=== PATIENT | male | born 1965 | race Caucasian/White ===

== ENCOUNTER 2016-08-12 00:53 | Inpatient (IN) | payer BC, OTHER ==
[2016-08-12] VITALS (8 sets, daily range): BP systolic 105–157; BP diastolic 68–104
[~2016-08-12] VITALS: Ht 180.3 cm; Wt 69.4 kg
[2016-08-12] MEDS ORDERED: IV NS 1000 ML 1,000 ML IV PRN (01:00)
[2016-08-12] MEDS ORDERED: MAG HYDROX/AL HYDROX/SIMETH 30 ML LIQUID UDC PO PRN (01:00)
[2016-08-12] MEDS ORDERED: LORAZEPAM 1 MG TABLET PO PRN ×2 (01:00)
[2016-08-12] MEDS ORDERED: DICYCLOMINE HCL 20 MG TABLET PO PRN (01:00)
[2016-08-12] MEDS ORDERED: LOPERAMIDE HCL 2 MG CAPSULE PO PRN ×2 (01:00)
[2016-08-12] MEDS ORDERED: THIAMINE HCL 200 MG/2 ML VIAL IM ONE (01:00)
[2016-08-12] MEDS ORDERED: IBUPROFEN 400 MG TABLET PO PRN (01:00)
[2016-08-12] MEDS ORDERED: MIRALAX 17 GM POWD.PACK PO PRN (01:00)
[2016-08-12] MEDS ORDERED: PROMETHAZINE HCL 25 MG/1 ML VIAL IM PRN (01:00)
[2016-08-12] MEDS ORDERED: LORAZEPAM 2 MG/1 ML VIAL IM PRN (01:00)
[2016-08-12] MEDS ORDERED: MAGNESIUM HYDROXIDE 30 ML LIQUID UDC PO PRN (01:00)
[2016-08-12 01:29] LABS: *AMPHETAMINE, URINE NEGATIVE (NEGATIVE); *BARBITURATE, URINE NEGATIVE (NEGATIVE); *CANNABINOID, URINE NEGATIVE (NEGATIVE); *COCCAINE, URINE NEGATIVE (NEGATIVE); *OPIATE, URINE NEGATIVE (NEGATIVE); *PHENCYCLIDINE SCREEN,URINE NEGATIVE (NEGATIVE)
[2016-08-12] MEDS: ONDANSETRON 4 MG/2 ML VIAL IV PRN ×2 (01:39→08:24)
--- NOTE | 2016-08-12 01:41 | NUR ---
RN note PRN Zofran Pt with 2 episodes of vomiting and c/o nausea. Administered Zofran 4 mg IV. No SOB noted. Will monitor and reassess.
[2016-08-12] MEDS ORDERED: ONDANSETRON 4 MG/2 ML VIAL ONE (01:43)
[2016-08-12] MEDS ORDERED: LORAZEPAM 1 MG TABLET ONE (01:43)
[2016-08-12 01:47] LABS: BASOPHILS % (AUTO) 0.3 % (0.0-2.0); EOSINOPHILS % (AUTO) 0.5 % (0.0-7.0); HEMOGLOBIN 16.6 g/dL (14.0-18.0); LYMPHOCYTES # (AUTO) 3.3 K/uL (0.8-4.8); LYMPHOCYTES % (AUTO) 34.5 % (20.5-51.5); MEAN CORPUSCULAR HEMOGLOBIN 31.4 uug (27.0-31.0); MEAN CORPUSCULAR HGB CONC 35 g/dL (32.0-37.0); MONOCYTES # (AUTO) 0.7 K/uL (0.1-1.30); NEUTROPHILS # (AUTO) 5.5 K/uL (1.8-8.9); NEUTROPHILS % (AUTO) 57.7 % (38.5-71.5); PLATELET COUNT (AUTO) 237 K/uL (150-450); RED BLOOD CELL COUNT(AUTO) 5.28 MIL/uL (4.70-6.10); WHITE BLOOD COUNT (AUTO) 9.5 K/uL (4.0-11.2)
[2016-08-12 01:49] LABS: ALANINE AMINOTRANSFERASE 34 U/L (16-63); ALBUMIN 4.2 g/dL (3.4-5.0); ALKALINE PHOSPHATASE 79 U/L (50-136); AMYLASE 29 U/L (25-115); ASPARTATE AMINOTRANSFERASE 43 U/L (15-37); BILIRUBIN,TOTAL 1.2 mg/dL (0.2-1.0); CALCIUM 9.4 mg/dL (8.5-10.1); CARBON DIOXIDE 25 mmol/L (21-32); CHLORIDE 99 mmol/L (98-107); GFR 53 mL/min (>60); GLUCOSE 161 mg/dL (74-106); LIPASE 189 U/L (73-393); MAGNESIUM 1.8 mg/dL (1.8-2.4); POTASSIUM 3.6 mmol/L (3.5-5.1); SODIUM SERUM 138 mmol/L (136-145); TOTAL PROTEIN, SERUM 8.3 g/dL (6.4-8.2); UREA NITROGEN, BLOOD 8 mg/dL (7-18)
[2016-08-12 01:54] LABS: ETHANOL < 3 MG/DL (0-0)
[2016-08-12 01:55] LABS: CREATININE 1.4 mg/dL (0.6-1.3)
[2016-08-12 01:58] LABS: THYROID STIMULATING HORMONE 3.741 mIU/mL (0.358-3.740)
[2016-08-12] MEDS ORDERED: LORAZEPAM 1 MG TABLET PO ONE (02:00)
[2016-08-12 02:19] LABS: HIV-1 p24 ANTIGEN NON REACTIVE (NONREACTIVE); HIV-1/2 ANTIBODY NON REACTIVE (NONREACTIVE)
--- NOTE | 2016-08-12 03:20 | NUR ---
ADMISSION Pt is a 51 yo male who arrived on the [facility] at 0120 on 08/12/16. Body check performed by [facility] and skin check performed by nurse. He is A&O x4 and ambulatory. He reports NKA, is full code status, and on a regular diet at home. Pt does not appear intoxicated and answers questions appropriately. He is having nausea and dry heaving upon admission. Vital signs are B/P 157/103, HR 107, O2 sat 99%, RR 18, T 98.8, 5/10 abdominal pain r/t nausea. Pt is 5'11" and weighs 153lb. He has a PMH of fatty liver, posterior right side cracked rib, rotator cuff surgery, self reported depression and anxiety. Lung sounds clear, PERRLA, brisk capillary refill, card player equal and strong, bowel sounds present. History of Use ETOH/Whiskey or Jerome 750mL per day for 8 months. Last drank 18 oz of beer on 08/11 at 0800. He has used ETOH for 30 years total. This is patient's first time in treatment. Symptoms when he does not use include "nausea, stomach pain, and tremors". Pt came to treatment because "I can't keep doing this". CIWA on admission was 12. His primary care physician is Dr. Covarrubias in [place], [place]. Dr. Puentes aware of pt's admission with orders received. Fall and seizure precautions in place. Bed is down with call light in reach. Addendum: 08/12/16 at 0622 by CHERRY DHALIWAL RN Pt reports that he was in the ER twice on 08/11/1701 for ETOH intoxication and withdrawal where he was administered anti-nausea medication and valium.
[2016-08-12] MEDS: diphenhydrAMINE 50 MG CAPSULE PO PRN (03:29)
--- NOTE | 2016-08-12 03:30 | NUR ---
PRN Benadryl administration Pt reports inability to sleep and that he has not slept in two days. PRN Benadryl administered.
[2016-08-12] MEDS ORDERED: diphenhydrAMINE 50 MG CAPSULE ONE (03:33)
--- NOTE | 2016-08-12 04:30 | NUR ---
PRN Benadryl reassessment PRN Benadryl effective. Pt is lying in bed resting with eyes closed. Respirations even and unlabored. Bed is down with call light in reach.
[2016-08-12] MEDS ORDERED: ONDA4TAB8 PO (04:36)
[2016-08-12] MEDS ORDERED: DICY10CA13 PO (04:36)
[2016-08-12] MEDS ORDERED: OMEP20CA10 PO (04:36)
--- NOTE | 2016-08-12 07:25 | NUR ---
END OF SHIFT Report provided to day shift nurse. Pt is lying in bed resting. He is a 51 yo male admitted to [facility] at 0120 today for ETOH withdrawal. He is A&O x4 and ambulatory. NKA, full code, regular diet. He has an IV to the right forearm with IV fluids running. One time Ativan, PRN Zofran, and PRN Benadryl administered. Last CIWA was 5. He drank 651mL and slept for 3 hours. Fall and seizure precautions in place. Bed is down with call light in reach.
[2016-08-12] MEDS: ONDANSETRON ODT 4 MG TAB.RAPDIS SL PRN ×2 (07:37→22:00)
--- NOTE | 2016-08-12 07:56 | NUR ---
Start of shift: Received pt laying in bed a/ox4. Pt receiving IV fluids NS @ 125 ml/hr to RFA. No swelling or redness noted to IV site. Pt presents with flushed face. He is tremulous and reports nausea and anxiety. He states he slept restless and feels fatigued. CIWA 6. Ativan taper to start this AM. PRN Zofran ODT administered to manage nausea. Will monitor effectiveness. Will medicate as ordered. Bed locked and in lowest position with call calvert in reach. Will continue to manage S/S of W/D and provide safe and supportive environment.
[2016-08-12] MEDS: LORAZEPAM 1 MG TABLET PO SCH ×4 (08:24→22:00)
[2016-08-12] MEDS: THIAMINE HCL 100 MG TABLET PO SCH (08:24)
[2016-08-12] MEDS: FOLIC ACID 1 MG TABLET PO SCH (08:24)
[2016-08-12] MEDS: MULTIVITAMINS,THERAPEUTIC TABLET PO SCH (08:24)
[2016-08-12] MEDS ORDERED: PANTOPRAZOLE SODIUM 40 MG VIAL IV SCH (09:00)
[2016-08-12] MEDS: ACETAMINOPHEN 325 MG TABLET PO PRN (12:40)
--- NOTE | 2016-08-12 12:45 | NUR ---
PT REPORTS WALSH 09/29. PRN TYLENOL GIVEN. WILL MONITOR EFFECTIVENESS
[2016-08-12] MEDS: CLONIDINE HCL 0.1 MG TABLET PO PRN (12:47)
--- NOTE | 2016-08-12 12:49 | NUR ---
IV FLUIDS DC'D PER MD. ENCOURAGED PT TO INCREASE FLUIDS
--- NOTE | 2016-08-12 13:15 | NUR ---
PT STATES TYLENOL WAS EFFECTIVE. DENIES WALSH AT THIS TIME.
[2016-08-12] MEDS: GABAPENTIN 300 MG CAPSULE PO SCH (17:19)
--- NOTE | 2016-08-12 19:03 | NUR ---
END OF SHIFT: PT CONTINUES ON ATIVAN TAPER. IV FLUIDS D/C'D AT NOON. PT C/O NAUSEA THIS MORNING. PO ZOFRAN WAS NOT EFFECTIVE. IV ZOFRAN GIVEN AND WAS EFFECTIVE. PT'S FACE IS FLUSHED AND FINE TREMORS NOTED TO HANDS. PRN TYLENOL GIVEN FOR REPORTED WALSH AND WAS EFFECTIVE. LAST CIWA 8. ENCOURAGED PT REST IN BED AND TO INCREASE FLUIDS.PT INTERACTED WITH PEERS. SAFETY MEASURES IN PLACE. CALL MAGANA IN REACH AND BED IN LOWEST POSITION. WILL PASS REPORT TO ONCOMING NURSE.
--- NOTE | 2016-08-12 19:15 | NUR ---
START OF SHIFT NOTE: Patient is a 51 y/o male admitted on 08/12/16 for ETOH dependence. Patient reported drinking 750ml of whiskey or bourbon daily for 8 months. Patient with past medical history of fatty liver, right posterior side cracked rib, Anxiety, Depression, & Rotator cuff surgery in 2001. Seizure and fall precautions noted. Patient is on a regular diet with no known food and drug allergies. Full Code status. Patient started today on a 5-day Ativan taper and tolerating well. last CIWA is 8. Pt was given PRN PO & IV Zofran for nausea during day shift and were effective. Pt has a 22G IV on his right forearm. IV site patent, flushes easily with no s/s of infiltration or infection. Patient is alert & oriented x4. No shortness of breath noted. Respiration even & unlabored. Abdomen soft & non-distended. Bowel sounds active in all four quadrants. Slight nausea noted with no episode of vomiting. no hallucinations noted. Patient denies SI/HI. Safety precautions are in place. Bed locked in lowest position. Both side rails up. Call light within pt's reach. Will continue to monitor patient.
--- NOTE | 2016-08-12 22:00 | NUR ---
PRN Zofran Patient complains of slight nausea. No episode of vomiting noted. PRN Zofran PO given as ordered. Will continue to monitor patient.
--- NOTE | 2016-08-12 23:00 | NUR ---
PRN reassessment Patient verbalized relief from nausea. No episode of vomting noted. PRN Zofran effective. Will continue to monitor patient.
[2016-08-13] VITALS: BP 128/80
--- NOTE | 2016-08-13 04:00 | NUR ---
Vitals/Ciwa deferred Patient refused at this time. No shortness of breath noted. Respiration even & unlabored. Patient asleep in bed and appears comfortable. Will continue to monitor.
--- NOTE | 2016-08-13 07:09 | NUR ---
END OF SHIFT NOTE: Patient is a 51 y/o male admitted on 08/12/16 for ETOH dependence. Patient reported drinking 750ml of whiskey or bourbon daily for 8 months. Patient with past medical history of fatty liver, right posterior side cracked rib, Anxiety, Depression, & Rotator cuff surgery in 2001. Seizure and fall precautions noted. Patient is on a regular diet with no known food and drug allergies. Full Code status. Patient started today on a 5-day Ativan taper and tolerating well. Last CIWA is 3. Pt was given PRN Zofran for nausea and were effective. Pt remained compliant with therapeutic plan. Pt remained stable and vitals remains WNL. Pt slept for a total of 5 hours. Pt consumed 2683ml of fluids. Voided 4x with no bowel movement. All needs attended & met. Safety precautions are in place. Will endorse pt to day shift nurse.
[2016-08-13 08:00] VITALS: BP 120/93
--- NOTE | 2016-08-13 08:10 | NUR ---
START OF SHIFT: RECEIVED PT THIS AM SLEEPING IN BED. PT AWOKE AND STATED HE HAD A BETTER NIGHT LAST NIGHT BUT FEELS GROGGY AND MILDLY ANXIOUS. PT DENIES NAUSEA THIS AM AND STATES THE PO ZOFRAN GIVEN BY [facility] DOCTOR NURSE WAS EFFECTIVE. PT SLEPT 5 HOURS. CIWA 2 THIS AM. WILL CONTINUE ATIVAN TAPER TODAY AND WILL MANAGE PT S/S OF W/D. WILL ENCOURAGE GROUP ATTENDANCE TODAY.
[2016-08-13] MEDS ORDERED: TUBERCULIN,PURIF.PROT.DERIV. 5 TU/0.1 ML TEST ID ONE (09:00)
[2016-08-13] MEDS ORDERED: LORAZEPAM 1 MG TABLET PO SCH (09:00)
[2016-08-13] MEDS: GABAPENTIN 300 MG CAPSULE PO SCH ×2 (09:02→17:18)
[2016-08-13] MEDS: THIAMINE HCL 100 MG TABLET PO SCH (09:02)
[2016-08-13] MEDS: MULTIVITAMINS,THERAPEUTIC TABLET PO SCH (09:02)
[2016-08-13] MEDS: FOLIC ACID 1 MG TABLET PO SCH (09:02)
[2016-08-13 11:34] LABS: HEMATOCRIT 50.1 % (40.0-50.0); MEAN CORPUSCULAR HEMOGLOBIN 31.6 uug (27.0-31.0); MEAN CORPUSCULAR HGB CONC 34 g/dL (32.0-37.0); MEAN CORPUSCULAR VOLUME 93.4 fL (82.0-92.0); PLATELET COUNT (AUTO) 215 K/uL (150-450); RED BLOOD CELL COUNT(AUTO) 5.37 MIL/uL (4.70-6.10); RED CELL DISTRIBUTION WIDTH 13.1 % (11.5-14.5); WHITE BLOOD COUNT (AUTO) 7.9 K/uL (4.0-11.2)
[2016-08-13 11:51] LABS: BILIRUBIN,DIRECT 0.2 mg/dL (0.0-0.2); BILIRUBIN,TOTAL 0.8 mg/dL (0.2-1.0); CALCIUM 9.9 mg/dL (8.5-10.1); CREATININE 1.3 mg/dL (0.6-1.3); MAGNESIUM 2.3 mg/dL (1.8-2.4); POTASSIUM 5.1 mmol/L (3.5-5.1); TOTAL PROTEIN, SERUM 8.2 g/dL (6.4-8.2)
[2016-08-13 11:58] LABS: THYROID STIMULATING HORMONE 2.645 mIU/mL (0.358-3.740)
[2016-08-13 12:00] VITALS: BP 141/96
[2016-08-13 13:25] LABS: HCV AB 0.2 s/co ratio (0.0-0.9); HEPATITIS B CORE AB, IgM Negative (Negative); HEPATITIS B SURFACE AG Negative (Negative)
[2016-08-13] MEDS: LORAZEPAM 1 MG TABLET PO SCH ×2 (14:31→21:49)
[2016-08-13 16:00] VITALS: BP 138/94
[2016-08-13 16:18] LABS: LYMPHOCYTES % (AUTO) 24.2 % (20.5-51.5); MONOCYTES % (AUTO) 6.3 % (0.0-11.0)
[2016-08-13 16:19] LABS: BASOPHILS % (AUTO) 0.2 % (0.0-2.0); EOSINOPHILS # (AUTO) 0.1 K/uL (0.0-0.7); EOSINOPHILS % (AUTO) 1.3 % (0.0-7.0); MONOCYTES # (AUTO) 0.5 K/uL (0.1-1.30); NEUTROPHILS # (AUTO) 5.7 K/uL (1.8-8.9)
--- NOTE | 2016-08-13 18:47 | NUR ---
END OF SHIFT: PT IS ON ATIVAN TAPER. MODIFIED TAPER BECAUSE PT C/O FEELING GROGGY AND OUT OF IT. PT STATES HE FEELS BETTER WITH LOWER ATIVAN DOSE. LAST CIWA 4. PT IS ANXIOUS AND HAS MINOR TREMORS WITH FLUSHED FACE. PT TRIES TO MINIMIZE S/S OF W/D. NO PRN MEDS GIVEN ON THIS SHIFT PT STATES DETOX MEDS ARE EFFECTIVE. PT SOCIALIZING WITH PEERS AND ATTENDING GROUP. SAFETY MEASURES IN PLACE. WILL PASS SHIFT REPORT TO ONCOMING HOSPICE HOME CARE COORDINATOR NURSE.
--- NOTE | 2016-08-13 19:30 | NUR ---
START OF SHIFT NOTE: Patient is a 51 y/o male admitted on 08/12/16 for ETOH dependence. Patient reported drinking 750ml of whiskey or bourbon daily for 8 months. Patient with past medical history of fatty liver, right posterior side cracked rib, Anxiety, Depression, & Rotator cuff surgery in 2001. Seizure and fall precautions noted. Patient is on a regular diet with no known food and drug allergies. Full Code status. Patient is on a modified Ativan taper and tolerating well. last CIWA is 4. No PRN medications was given during day shift. Patient is alert & oriented x4. No shortness of breath noted. Respiration even & unlabored. Abdomen soft & non-distended. Bowel sounds active in all four quadrants. Patient denies nausea at this time. Patient appears flushed. Patient denies anxiety, sweating and chills. No hallucinations noted. Patient denies SI/HI. Safety precautions are in place. Bed locked in lowest position. Both side rails up. Call light within pt's reach. Will continue to monitor patient.
[2016-08-13 20:00] VITALS: BP 128/96
[2016-08-13] MEDS: diphenhydrAMINE 50 MG CAPSULE PO PRN (21:49)
--- NOTE | 2016-08-13 21:49 | NUR ---
PRN Benadryl Patient complains of insomnia. Pt requested medication that will help him sleep. Benadryl PRN administered as ordered. Will continue to monitor patient.
--- NOTE | 2016-08-14 | NUR ---
Vitals/Ciwa deferred Patient refused vitals at this time. No shortness of breath noted. Respiration even & unlabored. Patient asleep in bed and appears comfortable. Will continue to monitor.
--- NOTE | 2016-08-14 02:49 | NUR ---
Prn Reassessment Patient asleep in bed at this time and appears comfortable. PRN medication effecrtive. No shortness of breath noted. Will continue to monitor.
--- NOTE | 2016-08-14 07:14 | NUR ---
END OF SHIFT NOTE: Patient is a 51 y/o male admitted on 08/12/16 for ETOH dependence. Patient reported drinking 750ml of whiskey or bourbon daily for 8 months. Patient with past medical history of fatty liver, right posterior side cracked rib, Anxiety, Depression, & Rotator cuff surgery in 2001. Seizure and fall precautions noted. Patient is on a regular diet with no known food and drug allergies. Full Code status. Patient is on a 5-day Ativan taper and tolerating well. Last CIWA is 3. Pt was given PRN Benadryl for sleep and were effective. Pt remained compliant with therapeutic plan. Pt remained stable and vitals remains WNL. Pt slept for a total of 8 hours. Pt consumed 1153 ml of fluids. Voided 3x with no bowel movement. All needs attended & met. Safety precautions are in place. Will endorse pt to day shift nurse.
--- NOTE | 2016-08-14 07:15 | NUR ---
Start of Shift Notes: Received patient in his room. Awake, alert and oriented x 4. Verbally responsive. Able to make his needs known. Appears flushed and anxious. Respirations even and unlabored. No SOB noted. Skin warm and dry to touch. Abdomen soft and non-distended with (+) BS in all 4 quadrants. No complains of abdominal pain or discomfort noted. No complains of N/V/D or constipation noted. Bladder non-distended and voids independently. Ambulatory ad aislinn wit steady gait. Patient is a 51 year old male admitted for ETOh dependence who was placed on a 50day Ativan taper as ordered. No adverse reactions noted. Has past medical hx of fatty liver, right posterior cracked rib,k anxiety, depression, rotator cuff surgery. NKA. FULL CODE. Regular diet. On fall and seizure precautions. Educated patient on his current plan of care for the day and his medication regimen. Encouraged oral fluid intake and encouraged group participation to learn new skills to prevent relapse. Will continue to monitor closely.
[2016-08-14 08:00] VITALS: BP 132/87
[2016-08-14] MEDS: PANTOPRAZOLE SODIUM 40 MG TABLET.DR PO SCH (09:00)
[2016-08-14] MEDS ORDERED: LORAZEPAM 1 MG TABLET PO SCH (09:00)
[2016-08-14] MEDS: FOLIC ACID 1 MG TABLET PO SCH (09:19)
[2016-08-14] MEDS: GABAPENTIN 300 MG CAPSULE PO SCH ×2 (09:19→17:05)
[2016-08-14] MEDS: MULTIVITAMINS,THERAPEUTIC TABLET PO SCH (09:19)
[2016-08-14] MEDS: THIAMINE HCL 100 MG TABLET PO SCH (09:19)
[2016-08-14] MEDS: LORAZEPAM 1 MG TABLET PO SCH ×3 (09:20→20:12)
--- NOTE | 2016-08-14 09:59 | NUR ---
Protonix at 0900 not administered: Patient refused Protonix at 0900. Education provided still refused. Per patient, he will take it in AM. made aware.
[2016-08-14 12:00] VITALS: BP 154/92
[2016-08-14] MEDS: CLONIDINE HCL 0.1 MG TABLET PO PRN (14:19)
[2016-08-14 14:20] VITALS: BP 160/107
--- NOTE | 2016-08-14 14:20 | NUR ---
Clonidine 0.1mg PO given: Patient noted with anxiety. BP 160/107. Denies any complains of chest pain, headache, light headedness. Medicated patient with Clonidine 0.1mg PO as ordered. Will monitor for effectiveness.
[2016-08-14 15:20] VITALS: BP 145/87
--- NOTE | 2016-08-14 15:20 | NUR ---
Re-assessment: BP 145/87. Patient states less anxiety noted. PRN Clonidine was effective.
[2016-08-14 16:00] VITALS: BP 109/79
--- NOTE | 2016-08-14 19:03 | NUR ---
End of Shift Notes: Patient is a 51 year old male admitted for ETOh dependence who was placed on a 50day Ativan taper as ordered. No adverse reactions noted. Has past medical hx of fatty liver, right posterior cracked rib,, anxiety, depression, rotator cuff surgery. NKA. FULL CODE. Regular diet. On fall and seizure precautions. Prior to admission, patient was using 750cc of whiskey or bourbon daily for 8 months. Withdrawal symptoms were closely monitored. Patient presented with anxiety, agitation and fine tremors. Initial CIWA 3, Last CIWA 3. VS monitored closely q 4 hours. Protonix 40 mg PO at 0900 refused despite encouragement. Participated in group and therapy sessions. All needs met and attended. Will continue to monitor closely.
--- NOTE | 2016-08-14 19:25 | NUR ---
Start of Shift Patient Received. Patient is in his room, awake, alert and verbally responsive. Patient is noted in bed watching TV. Breathing even and non labored. No signs of pain or discomfort noted. Patient is a 51 year old male, admitted on 08/12/16 for ETOH Withdrawal, under the care or Dr. Puentes, currently receiving a 5 day Ativan taper. Patient verbalizes no known allergies, wishes to be full code, following a regular diet, placed on fall and seizure precautions, and skin noted intact. Past medical History noted as fatty liver, Right posterior side cracked rib, anxiety, depression, Rotator cuff surgery in 2001. Per endorsement, patient is noted to be compliant with medications and plan of care as ordered. PRN Clonidine given and noted to be effective. All needs attended to promptly. Will continue plan of care as ordered.
[2016-08-14 20:10] VITALS: BP 131/83
[2016-08-14] MEDS: diphenhydrAMINE 50 MG CAPSULE PO PRN (20:12)
--- NOTE | 2016-08-14 20:15 | NUR ---
PRN Medication Administration Patient verbalizing "My anxiety is really high. Im really irritated. I really miss home. Im really tired but cant fall asleep." PRN Benadryl given with routine medications. Patient able to tolerate well. Will continue to monitor.
--- NOTE | 2016-08-14 22:30 | NUR ---
PRN Medication Reassessment Patient is noted in bed sleeping. Breathing even and non labored. No signs of pain or discomfort noted. Patient was given PRN Benadryl and medication noted effective. Will continue to monitor.
--- NOTE | 2016-08-15 00:40 | NUR ---
Vitals and CIWA Patient refused 0000 prior to bed. Patient verbalized "Im just really want to sleep through the night." Patient is in bed sleeping. Breathing even and non labored. No signs of pain or discomfort noted. Patient respirations noted 14. CIWA not able to be completed as per order. Will continue to monitor. Addendum: 08/15/16 at 0040 by DARIAN HOLLOWAY LVN Amended: Links added.
--- NOTE | 2016-08-15 04:15 | NUR ---
Vitals and CIWA Patient refused 0400 prior to bed. Patient verbalized "Im just really want to sleep through the night." Patient is in bed sleeping. Breathing even and non labored. No signs of pain or discomfort noted. Patient respirations noted 14. CIWA not able to be completed as per order. Will continue to monitor. Addendum: 08/15/16 at 0504 by DARIAN HOLLOWAY LVN Amended: Links added.
[2016-08-15] MEDS: PANTOPRAZOLE SODIUM 40 MG TABLET.DR PO SCH (06:19)
--- NOTE | 2016-08-15 07:28 | NUR ---
End of Shift Patient Received. Patient is in his room, awake, alert and verbally responsive. Patient is noted in bed watching TV. Breathing even and non labored. No signs of pain or discomfort noted. Patient is a 51 year old male, admitted on 08/12/16 for ETOH Withdrawal, under the care or Dr. Puentes, currently receiving a 5 day Ativan taper. Patient verbalizes no known allergies, wishes to be full code, following a regular diet, placed on fall and seizure precautions, and skin noted intact. Past medical History noted as fatty liver, Right posterior side cracked rib, anxiety, depression, Rotator cuff surgery in 2001. Patient was given PRN Benadryl and medication noted to be effective. Patient is noted to be compliant with medications and plan of care as ordered. All needs attended to promptly. Will continue plan of care as ordered.
--- NOTE | 2016-08-15 07:51 | NUR ---
Start of Shift Notes: Received patient in his room. Awake, alert and oriented x 4. Verbally responsive. Able to make his needs known. Appears anxious. Fine tremors noted. Respirations even and unlabored. No SOB noted. Skin warm and dry to touch. Abdomen soft and non-distended with (+) BS in all 4 quadrants. No complains of abdominal pain or discomfort noted. No complains of N/V/D or constipation noted. Bladder non-distended and voids independently. Ambulatory ad aislinn wit steady gait. Patient is a 51 year old male admitted for ETOh dependence who was placed on a 50day Ativan taper as ordered. No adverse reactions noted. Has past medical hx of fatty liver, right posterior cracked rib,k anxiety, depression, rotator cuff surgery. NKA. FULL CODE. Regular diet. On fall and seizure precautions. Educated patient on his current plan of care for the day and his medication regimen. Encouraged oral fluid intake and encouraged group participation to learn new skills to prevent relapse. Will continue to monitor closely.
[2016-08-15 08:00] VITALS: BP 103/75
[2016-08-15] MEDS ORDERED: LORAZEPAM 1 MG TABLET PO SCH (09:00)
[2016-08-15] MEDS: THIAMINE HCL 100 MG TABLET PO SCH (09:09)
[2016-08-15] MEDS: GABAPENTIN 300 MG CAPSULE PO SCH ×2 (09:09→16:03)
[2016-08-15] MEDS: MULTIVITAMINS,THERAPEUTIC TABLET PO SCH (09:09)
[2016-08-15] MEDS: LORAZEPAM 1 MG TABLET PO SCH ×2 (09:09→21:15)
[2016-08-15] MEDS: FOLIC ACID 1 MG TABLET PO SCH (09:09)
[2016-08-15] MEDS: FLUTICASONE PROP NASAL SPRAY 16 GM BOTTLE NS SCH (09:09)
[2016-08-15] MEDS: LORATADINE 10 MG TABLET PO SCH (09:09)
[2016-08-15 12:00] VITALS: BP 103/75
[2016-08-15 16:00] VITALS: BP 130/97
[2016-08-15] MEDS: ACETAMINOPHEN 325 MG TABLET PO PRN (16:03)
--- NOTE | 2016-08-15 16:07 | NUR ---
Tylenol 650 mg PO given: Patient noted with complain of headache 09/29. Medicated patient with Tylenol 650 mg PO as ordered. Will monitor for effectiveness.
--- NOTE | 2016-08-15 17:07 | NUR ---
Re-assessment: Per patient, PRN Tylenol was effective in reducing his headache.
--- NOTE | 2016-08-15 18:40 | NUR ---
End of Shift Notes: Patient is a 51 year old male admitted for ETOh dependence who was placed on a 50day Ativan taper as ordered. No adverse reactions noted. Has past medical hx of fatty liver, right posterior cracked rib,, anxiety, depression, rotator cuff surgery. NKA. FULL CODE. Regular diet. On fall and seizure precautions. Prior to admission, patient was using 750cc of whiskey or bourbon daily for 8 months. Withdrawal symptoms were closely monitored. Patient presented with anxiety, fine tremors. Initial CIWA 4, Last CIWA 2. VS monitored closely q 4 hours. No significant abnormalities noted. Tylenol 650 mg PO as given at 1604 due to complains of headache with help after 1 hour. Compliant with care and treatment.. Participated in group and therapy sessions. All needs met and attended. Will continue to monitor closely.
--- NOTE | 2016-08-15 19:25 | NUR ---
Start of Shift Patient Received. Patient is in activities room participating in group activities. Patient is a 51 year old male, admitted on 08/12/16 for ETOH Withdrawal, under the care or Dr. Puentes, currently receiving a 5 day Ativan taper. Patient verbalizes no known allergies, wishes to be full code, following a regular diet, placed on fall and seizure precautions, and skin noted intact. Past medical History noted as fatty liver, Right posterior side cracked rib, anxiety, depression, Rotator cuff surgery in 2001. Per endorsement, patient is noted to be compliant with medications and plan of care as ordered. PRN Tylenol given and noted to be effective. All needs attended to promptly. Will continue plan of care as ordered.
[2016-08-15 20:10] VITALS: BP 140/96
[2016-08-15] MEDS: diphenhydrAMINE 50 MG CAPSULE PO PRN (21:15)
[2016-08-15] MEDS: CLONIDINE HCL 0.1 MG TABLET PO PRN (21:15)
--- NOTE | 2016-08-15 21:20 | NUR ---
PRN Medication Administration Patient noted with elevated blood pressure, pulse, verbalizing increased anxiety, Chills, restless, and inability of falling asleep. PRN Clonidine and Benadryl given with routine medication. Will continue to monitor for effectiveness.
--- NOTE | 2016-08-15 23:00 | NUR ---
PRN Medication Reassessment Patient is noted in his bed, awake, alert and verbally responsive. Breathing even and non labored. No signs of pain or discomfort noted. Patient able to verbalize "the medication really helped me to relax enough so I can try and go to sleep." PRN medications noted to be effective. Will continue to monitor.
--- NOTE | 2016-08-16 00:52 | NUR ---
Vitals and CIWA Patient refused 0000 prior to bed. Patient verbalized "Im just really want to sleep through the night." Patient is in bed sleeping. Breathing even and non labored. No signs of pain or discomfort noted. Patient respirations noted 14. CIWA not able to be completed as per order. Will continue to monitor. Addendum: 08/16/16 at 0052 by DARINA HOLLOWAY LVN Amended: Links added.
--- NOTE | 2016-08-16 04:39 | NUR ---
Vitals and CIWA Patient refused 0400 prior to bed. Patient verbalized "Im just really want to sleep through the night." Patient is in bed sleeping. Breathing even and non labored. No signs of pain or discomfort noted. Patient respirations noted 14. CIWA not able to be completed as per order. Will continue to monitor. Addendum: 08/16/16 at 0440 by DARIAN HOLLOWAY LVN Amended: Links added.
[2016-08-16] MEDS: PANTOPRAZOLE SODIUM 40 MG TABLET.DR PO SCH (06:12)
--- NOTE | 2016-08-16 07:24 | NUR ---
End of Shift Patient Received. Patient is in his room, awake, alert and verbally responsive. Patient is noted in bed watching TV. Breathing even and non labored. No signs of pain or discomfort noted. Patient is a 51 year old male, admitted on 08/12/16 for ETOH Withdrawal, under the care or Dr. Puentes, currently receiving a 5 day Ativan taper. Patient verbalizes no known allergies, wishes to be full code, following a regular diet, placed on fall and seizure precautions, and skin noted intact. Past medical History noted as fatty liver, Right posterior side cracked rib, anxiety, depression, Rotator cuff surgery in 2001. Patient was given PRN Benadryl and Clonidine 0.1mg with medications noted to be effective. Patient is noted to be compliant with medications and plan of care as ordered. All needs attended to promptly. Will continue plan of care as ordered.
--- NOTE | 2016-08-16 07:30 | NUR ---
Start of Shift Report from the night nurse: pt is 51y/o male her for Etoh r/t whisky and bourbon 750mg/d; 5 day Ativan taper ordered. Pt is a full code, regular diet, NKA, fall and seizure precautions ordered. HHx: fatty liver, right rib fx, anxiety , depression and rotator cuff surgery 2001. V/S stable. Skin is intact. No new labs, orders or recommendations endorsed to me. Last CIWA 7. Pt is in room asleep. Will cont. to monitor the pt.
[2016-08-16 08:00] VITALS: BP 126/88
[2016-08-16] MEDS: THIAMINE HCL 100 MG TABLET PO SCH (08:48)
[2016-08-16] MEDS: FOLIC ACID 1 MG TABLET PO SCH (08:48)
[2016-08-16] MEDS: MULTIVITAMINS,THERAPEUTIC TABLET PO SCH (08:48)
[2016-08-16] MEDS: HYDROXYZINE PAMOATE 25 MG CAPSULE PO PRN ×2 (08:48→20:51)
[2016-08-16] MEDS: CLONIDINE HCL 0.1 MG TABLET PO PRN (08:48)
[2016-08-16] MEDS: GABAPENTIN 300 MG CAPSULE PO SCH ×2 (08:48→16:57)
[2016-08-16] MEDS: FLUTICASONE PROP NASAL SPRAY 16 GM BOTTLE NS SCH (08:49)
[2016-08-16] MEDS: LORATADINE 10 MG TABLET PO SCH ×2 (08:49→10:24)
--- NOTE | 2016-08-16 08:55 | NUR ---
PRN Medication Administration Pt is in room agitated and irritable with c/o loss of sleep r/t the psychotic episode and yell with screaming of another pt and request something to help him sleep; PRN's Vistaril 25mg and Clonidine 0.1mg given PRN as ordered. Will reassess in 1H.
[2016-08-16] MEDS ORDERED: LORAZEPAM 1 MG TABLET PO SCH (09:00)
--- NOTE | 2016-08-16 10:00 | NUR ---
Reassessment Pt is awake, less anxious with walking in the [place] and states that he was unable to get sleep so he was going to attend group therapy; PRN Clonidine & Vistaril are effective for anxiety yet not for sleep. Will cont. to monitor the pt.
[2016-08-16 12:00] VITALS: BP 118/76
[2016-08-16 16:00] VITALS: BP 137/97
--- NOTE | 2016-08-16 16:58 | NUR ---
Medication Non-Administration Pt is very agitated and irritable since he was interrupted while he states that he just laid down to take a nap and was re-evaluated by Dr. Puentes and me for V/S; pt is uncooperative with care and times and refused the gabapentin 300mg. V/S stable. Will cont. to monitor the pt.
--- NOTE | 2016-08-16 19:37 | NUR ---
End of Shift Report to the night nurse: pt is 51y/o male her for Etoh r/t whisky and bourbon 750mg/d; 5 day Ativan taper ordered. Pt is a full code, regular diet, NKA, fall and seizure precautions ordered. HHx: fatty liver, right rib fx, anxiety , depression and rotator cuff surgery 2001. V/S stable. Skin is intact. No new labs, orders or recommendations endorsed to me. PRN Vistaril 25mg and Clonidine 0.1mg given since the pt was anxious and agitated with c/o loss of sleep last night yet was ineffective and the pt became very agitated, irritable, angry and impolite with staff and care care and refused gabapentin 300mg at 1600H with Last CIWA 10 r/t emotional episode. Pt did attend 1 group therapy during my shift. New orders to be d/c'd tomorrow & endorsed to night nurse to collect urine and that the pt refuses to get V/S done during his sleep and requested sleep aid ANA during the manager of business.
[2016-08-16 20:00] VITALS: BP 138/99
[2016-08-16] MEDS: diphenhydrAMINE 50 MG CAPSULE PO PRN (20:07)
--- NOTE | 2016-08-16 20:07 | NUR ---
PRN BENADRYL ADMINISTRATION PATIENT REQUESTS FOR SLEEP AID. PRN BENADRYL GIVEN. WILL MONITOR FOR EFFECTIVENESS
--- NOTE | 2016-08-16 20:51 | NUR ---
BENADRYL RE-ASSESSMENT/VISTARIL ADMINISTRATION PATIENT STATES STILL UNABLE TO SLEEP DUE TO ANXIETY. BENADRYL INEFFECTIVE. PRN VISTARIL GIVEN. WILL MONITOR FOR EFFECTIVENESS.
[2016-08-16 20:58] LABS: *AMPHETAMINE, URINE NEGATIVE (NEGATIVE); *BARBITURATE, URINE NEGATIVE (NEGATIVE); *CANNABINOID, URINE NEGATIVE (NEGATIVE); *COCCAINE, URINE NEGATIVE (NEGATIVE); *OPIATE, URINE NEGATIVE (NEGATIVE); *PHENCYCLIDINE SCREEN,URINE NEGATIVE (NEGATIVE)
--- NOTE | 2016-08-16 21:51 | NUR ---
PRN VISTARIL RE-ASSESSMENT PATIENT IN BED WITH EYES CLOSED. RESPIRATION EVEN AND UNLABORED. WILL CONTINUE TO MONITOR
--- NOTE | 2016-08-17 | NUR ---
VS/CIWA PATIENT REFUSED VS. CIWA UNABLE TO COMPLETE. PATIENT PREVIOUSLY REQUESTED NOT TO WAKE HIM UP FOR VS. PATIENT WANTS TO SLEEP. SAFETY MEASURES IN PLACE. CALL LIGHT IN REACH. WILL CONTINUE TO MONITOR.
--- NOTE | 2016-08-17 04:00 | NUR ---
VS/CIWA PATIENT REFUSED VS. CIWA UNABLE TO COMPLETE. RESPIRATION EVEN AND UNLABORED. RR 15. NO S/S OF DISTRESS. SAFETY MEASURES IN PLACE. CALL LIGHT IN REACH. WILL CONTINUE TO MONITOR
[2016-08-17] MEDS: HYDROXYZINE PAMOATE 25 MG CAPSULE PO PRN (05:21)
--- NOTE | 2016-08-17 05:21 | NUR ---
PRN VISTARIL/MAALOX ADMINISTRATION PATIENT WOKE UP C/O ANXIETY AND HEARTBURN . PATIENT WAS GIVEN VISTARIL AND MAALOX. WILL MONITOR FOR EFFECTIVENESS.
[2016-08-17] MEDS: PANTOPRAZOLE SODIUM 40 MG TABLET.DR PO SCH (06:08)
--- NOTE | 2016-08-17 06:21 | NUR ---
PRN VISTARIL/MAALOX RE-ASSESSMENT PATIENT STATES VISTARIL AND MAALOX HELPFUL AND EFFECTIVE. WILL CONTINUE TO MONITOR.
--- NOTE | 2016-08-17 07:20 | NUR ---
Start of Shift Report from the night nurse with update: pt is 51y/o male her for Etoh r/t whisky and bourbon 750mg/d; 5 day Ativan taper ordered. Pt is a full code, regular diet, NKA, fall and seizure precautions ordered. HHx: fatty liver, right rib fx, anxiety , depression and rotator cuff surgery 2001. V/S stable. Skin is intact. Night nurse states that pt was uncooperative with care and was anxious and agitated since he was having insomnia so PRN Vistaril given twice, Benadryl given for sleep but was only somewhat effective and PRN Maalox given since pt c/o heart burn r/t anxiety. UDS obtained last night since pt is to be d/c'd today. Last CIWA 3. Pt is in room asleep. Will cont. to monitor the pt.
--- NOTE | 2016-08-17 07:40 | NUR ---
END OF SHIFT NOTE PATIENT IS A 51 YEAR OLD MALE, ADMITTED ON 08/12/16 FOR ETOH DEPENDENCE. PATIENT IS FULL CODE, REGULAR DIET AND NO KNOWN ALLERGY. PATIENT DRINKS WHISKEY OR BOURBON 750 ML DAILY FOR 8 MONTHS. PATIENT WAS PLACED ON ATIVAN TAPER,COMPLETED. PATIENT IS TO BE DISCHARGE TODAY. SKIN INTACT . PATIENT ALERT AND ORIENTEX 4. RESPIRATION EVEN AND UNLABORED. PATIENT REPORTS BEING AGITATED AND UPSET DUE TO LACK OF SLEEP. PATIENT VERBALIZES NOT TO WAKE HIM UP FOR VS AND HE WANTS TO SLEEP. PATIENT WAS GIVEN PRN BENADRYL AND VISTARIL . LATER IN THE MORNING , PATIENT WOKE UP AND REPORTS ANXIETY AND HEARTBURN. PRN VISTARIL AND MAALOX GIVEN. , EFFECTIVE. PATIENT SLEPT 5 HOURS. FLUID INTAKE 796 ML . VOIDED X 2. NO BM . LAST CIWA 3.
[2016-08-17] MEDS: THIAMINE HCL 100 MG TABLET PO SCH (08:27)
[2016-08-17] MEDS: MULTIVITAMINS,THERAPEUTIC TABLET PO SCH (08:27)
[2016-08-17] MEDS: FOLIC ACID 1 MG TABLET PO SCH (08:28)
[2016-08-17] MEDS: GABAPENTIN 300 MG CAPSULE PO SCH (08:29)
[2016-08-17] MEDS ORDERED: HYDR-3895 PO (08:30)
[2016-08-17] MEDS ORDERED: Gabapentin PO (08:30)
[2016-08-17] MEDS ORDERED: PANT40TA2 PO (08:30)
[2016-08-17] MEDS ORDERED: DIPH50CA37 PO (08:30)
[2016-08-17] MEDS: LORATADINE 10 MG TABLET PO SCH (08:32)
--- NOTE | 2016-08-17 09:00 | NUR ---
Medication Non-Administration Pt refused Claritin 10mg and Flonase nasal spray before discharge.
[2016-08-17] MEDS: FLUTICASONE PROP NASAL SPRAY 16 GM BOTTLE NS SCH (09:31)
--- NOTE | 2016-08-17 10:15 | NUR ---
Discharge Pt is A&O x 4, ambulatory independently. Features symmetrical, no dizziness, WALSH or N/V noted. Pt denies chest pain. No SOB present. No s/sx of w/d present. V/S stable. No hallucinations, delusions or suicidal ideations present. Pt is given belongings, d/c summary packet, prescription and home medications given. Pt ambulates to lobby and discharged to the [facility] with the [facility].
== END 2016-08-17 10:10 | disposition other institution (70) | DRG 895 ==
LOC: SRC 00:58
PROVIDERS: ADMIT Internal Medicine; ATTEND Internal Medicine
PROC: HZ2ZZZZ Detoxification Services for Substance Abuse Treatment (ICD-10-PCS; principal; 2016-08-12)
PROC: HZ41ZZZ Group Counseling for Substance Abuse Treatment, Behavioral (ICD-10-PCS; principal; 2016-08-12)
PROC: HZ31ZZZ Individual Counseling for Substance Abuse Treatment, Behavioral (ICD-10-PCS; 2016-08-13)
DX: F10.230 Alcohol dependence with withdrawal, uncomplicated (principal); N17.9 Acute kidney failure, unspecified; K70.10 Alcoholic hepatitis without ascites; K29.20 Alcoholic gastritis without bleeding; Y90.9 Presence of alcohol in blood, level not specified; M50.10 Cervical disc disorder with radiculopathy, unspecified cervical region; G25.81 Restless legs syndrome; E07.81 Sick-euthyroid syndrome; F41.9 Anxiety disorder, unspecified; R73.01 Impaired fasting glucose; F32.9 Major depressive disorder, single episode, unspecified; G89.29 Other chronic pain; F17.210 Nicotine dependence, cigarettes, uncomplicated; J30.2 Other seasonal allergic rhinitis; K27.9 Peptic ulcer, site unspecified, unspecified as acute or chronic, without hemorrhage or perforation; Z79.899 Other long term (current) drug therapy; K70.0 Alcoholic fatty liver; M54.10 Radiculopathy, site unspecified; E86.9 Volume depletion, unspecified
CPT/HCPCS: 36415; 70030-TC; 80307; 80346; 83690; 83735; 84443; 85025; 86580; 86592; 86705; 86803; 87340; 87806; C9113; G6040-TC; J2405; J3411; J3535; J7030; Q0162; Q0163